=== PATIENT | male | born 1960 | race Caucasian/White ===

== ENCOUNTER 2025-08-22 08:39 | Observation (INO) ==
--- NOTE | 2025-07-14 10:17 | PAT Medication Instructions ---
Medication Instructions Date of Service July 14, 2025 Home Medications Medication Instructions Recorded pravastatin 80 mg tablet 80 mg PO QAM #90 tabs 10/06/24 finasteride 5 mg tablet 5 mg PO QAM #90 tabs 03/07/25 pravastatin 80 mg tablet 80 mg PO QAM finasteride 5 mg tablet 5 mg PO QAM fexofenadine 180 mg tablet 180 mg PO QAM losartan 50 mg tablet 50 mg PO QAM meloxicam 15 mg tablet 15 mg PO QAM semaglutide 2.5 mg/mL subcutaneous solution 2.5 mg subcut WK trazodone 100 mg tablet 100 - 150 mg PO HS STOP 7 days before surgery semaglutide 2.5 mg/mL subcutaneous solution 2.5 mg subcut WK ASK your surgeon for instructions meloxicam 15 mg tablet 15 mg PO QAM DO NOT take the morning of surgery fexofenadine 180 mg tablet 180 mg PO QAM losartan 50 mg tablet 50 mg PO QAM Take morning of surgery With a small sip of water, OTHERWISE NOTHING TO EAT OR DRINK AFTER MIDNIGHT: pravastatin 80 mg tablet 80 mg PO QAM finasteride 5 mg tablet 5 mg PO QAM Take evening before surgery trazodone 100 mg tablet 100 - 150 mg PO HS Other Notes If you have any questions please call us at [phone] or [phone] or [phone] or [phone]
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
[~2025-08-22 08:39] MED LIST: BUPIVACAINE 0.25% PF 30 ML VIAL ONE; BUPIVACAINE 0.5 % 5 MG/1 ML PF 10ML VIAL ONE; DEXAMETHASONE SOD INJ 4 MG/ML VIAL ONE
[2025-08-22] MEDS ORDERED: LIDOCAINE 2% 2 ML VIAL/AMP(20MG/ML) INFIL ONE (09:18)
[2025-08-22] MEDS ORDERED: PROPOFOL IV EMULSION 10 MG/ML 20 ML VIAL IV ONE (09:18)
[2025-08-22] MEDS ORDERED: MIDAZOLAM HCL 1 MG/ML 2ML VIAL ONE (09:19)
[2025-08-22] MEDS: LR 500ML BOLUS, THEN 15ML/HR IV SCH (09:30)
[2025-08-22] MEDS: LR 60ML/HR IV SCH (09:31)
[2025-08-22] MEDS: GABAPENTIN 300 MG CAP PO SCH (09:32)
[2025-08-22] MEDS: FAMOTIDINE 20 MG TAB PO SCH (09:32)
[2025-08-22] MEDS: ACETAMINOPHEN 500 MG TAB PO SCH ×2 (09:32→16:34)
[2025-08-22] MEDS: dexAMETHasone**PF** 10 MG/ML VIAL IV SCH (09:33)
--- NOTE | 2025-08-22 10:14 | History & Physical Bridge Note ---
Date of Service August 22, 2025 History & Physical Bridge Note I have examined the patient, reviewed the History & Physical and in the interval since the performance of the History & Physical I have noted the following changes of clinical significance: no changes noted
[2025-08-22] MEDS: TRANEXAMIC ACID 1,000 MG **IV Pre-op IV SCH (11:33)
[2025-08-22] MEDS: ORTHO JOINT ANESTHETIC ONE (12:12)
[2025-08-22] MEDS ORDERED: PHENYLEPHRINE 100MCG/ML 5ML SYR ONE (12:18)
[2025-08-22] MEDS: ROPIV 0.5% 246mg, Ketorolac 30mg, EPINEPHrine 0.5mg in NSS INFIL SCH (12:38)
--- NOTE | 2025-08-22 12:54 | Operative Report ---
PG Post Operative Report Pre & Post Diagnosis Operation Date: 08/22/25 11:00 Pre-Op Diagnosis: Left Knee Osteoarthritis Post-Op Diagnosis: Left Knee Osteoarthritis I identified the patient and participated in the time-out.: Yes Procedure Operation Date: 08/22/25 11:00 Actual Procedures p Robotic Assisted Left Total Knee Arthroplasty(Left) - Sundeep Rutherford DO Surgeon Sundeep Rutherford DO Account Support Analyst Mary Steele PA-C Estimated Blood Loss 30 Findings Consistent with Post-Op Diagnosis Specimens Left femoral and tibial bone Description of Procedure Implants used: I used a Bella Person[employer] total knee arthroplasty system with a size 8 PS standard femur, F tibia, 32 patella, and a size 10 CPS polyethylene bearing. All comp onents were press-fit into place. Matthias arrived [facility] for the above procedure. He was seen in the preoperative holding area and the operative extremity was identified and signed. he was given a preoperative antibiotic, TXA, a spinal anesthetic and an adductor nerve block. He was taken back to the operating room and laid on the table in supine position. He was given basic sedation. The operative knee was then prepped and draped in sterile fashion. A timeout was done, and the patient and the operative extremity was properly identified. A midline incision was made directly over the patella. Dissection was taken down to the extensor mechanism. A medial parapatellar arthrotomy was used. The medial retinaculum was released and the fat pad was mostly excised. The knee was flexed and the ACL, PCL, and meniscus were removed. The alignment of the knee replacement was assisted with a NanoPack robotic knee. The femoral array was pinned in the distal femur and the tibial array was pinned using a percutaneous technique in the upper shaft of the tibia. The robot was appropriately calibrated and the structure of the knee was mapped out. The components were then manipulated on the screen to account for any malalignment and to assist in gap balancing. Once I was happy with the placement of the components on the screen, a distal femoral cutting guide was brought in place. The distal femur was then resected. The femur measured to be a size 8. A 4-in-1 cutting block was then put into place by the robot and 2 peg holes were drilled. The 4-in-1 cutting block was then impacted into place and anterior, posterior, and chamfer cuts were made. The cutting block was then brought down to the tibia and pinned into place. The proximal tibia was then resected. The posterior aspect of the knee was then opened up and any additional meniscus fragments and osteophytes were removed. The tibia measured to be a size F. The tibial plate was then placed in the appropriate rotation and the tibia was drilled and punched. Trial components were then placed. The patella was then everted and 9 mm was resected off the posterior aspect of the patella. The patella measured to be a size 32. 3 peg holes were then drilled. A trial patella was placed. A size 10 CPS polyethylene insert was then trialed. The knee was brought through a full range of motion and felt to be stable. Trial components were then removed. The surrounding soft tissues were injected with 100 cc of an orthopedic pain control cocktail. All components were then press-fit into place. The final polyethylene insert was then snapped into place. The tourniquet was deflated. Hemostasis was obtained. An Irrisept lavage was then done for 3 minutes. The joint was then irrigated with normal saline solution. The medial parapatellar arthrotomy was then closed with #1 Vicryl suture. The skin was closed with 2-0 Vicryl, 3-0V lock suture, and [place] Zipline. A soft compressive dressing was placed. He was then transferred to a hospital bed and taken to the postanesthesia care unit in stable condition. He tolerated the procedure well. Mary Steele PA-C, was present for the entire procedure. He was critical for patient positioning, prepping, draping, retraction exposure, wound closure and application of sterile dressing. I attest to the content of the Intraoperative Record and any orders documented therein. Any exceptions are noted below.
[2025-08-22] MEDS ORDERED: PROMETHAZINE HCL 6.25 MG in SODIUM CHLORIDE 0.9% 50 ML IV PRN (13:08)
[2025-08-22] MEDS ORDERED: ONDANSETRON INJ 2 MG/ML 2 ML VIAL IV PRN ×2 (13:08→15:21)
[2025-08-22] MEDS ORDERED: ATROPINE SULFATE 0.1 MG/ML 10ML SYR IV PRN (13:08)
--- NOTE | 2025-08-22 13:50 | XRay Report ---
XR knee LT 1 or 2V routine CLINICAL HISTORY: Surgical Post Op COMPARISON: 02/01/2025 FINDINGS: Interval left knee prosthesis shows no hardware complication. There is expected soft tissu e gas. Stable old healed fracture at the distal femur. Stable multiple small metallic foreign bodies at and adjacent to the distal femur. IMPRESSION: Postoperative exam as described. ACT 112: Negative or not required by law. Electronically signed by: Chintan Buenrostro M.D. 08/22/2025 1:49 PM
--- NOTE | 2025-08-22 15:17 | Anesthesiology Progress Note ---
Date of Service August 22, 2025 Anesthesia Post Procedure Vital Signs Vital Signs: Temp Pulse Pulse Resp BP Pulse Ox O2 Del Method 08/22/25 15:00 71 16 115/73 98 Room Air 08/22/25 14:45 81 16 114/79 96 Room Air 08/22/25 14:35 68 18 114/76 97 Room Air 08/22/25 14:25 36.4 C L 64 20 107/75 96 Room Air 08/22/25 14:15 63 18 106/70 96 Room Air 08/22/25 14:05 64 18 102/66 95 Room Air 08/22/25 13:55 62 16 107/70 98 Oxymask 08/22/25 13:45 62 12 110/68 98 Oxymask 08/22/25 13:35 61 18 103/65 97 Oxymask 08/22/25 13:25 78 16 106/65 98 Oxymask 08/22/25 13:17 36.8 C 74 18 105/63 94 Oxymask 08/22/25 09:05 36.6 C 61 18 109/76 95 Room Air O2 Flow Rate 08/22/25 15:00 08/22/25 14:45 08/22/25 14:35 08/22/25 14:25 08/22/25 14:15 08/22/25 14:05 08/22/25 13:55 4 08/22/25 13:45 4 08/22/25 13:35 4 08/22/25 13:25 6 08/22/25 13:17 6 08/22/25 09:05 Pain Intensity Left Knee: Pain Intensity: 5 Transfer of Care Handoff Completed per policy Notes Mental Status: alert / awake / arousable Patient Amnestic to Procedure: Yes Nausea / Vomiting: adequately controlled Pain: adequately controlled Airway Patency, RR, SpO2: stable & adequate BP & HR: stable & adequate Hydration State: stable & adequate Neuraxial Anesthesia: was administered and sensory block is resolving Anesthetic Complications: no major complications apparent and Pt Satisfied with anesthetic care
[2025-08-22] MEDS ORDERED: diphenhydrAMINE Capsule 25 MG CAP PO PRN (15:21)
[2025-08-22] MEDS ORDERED: NALOXONE HCL 0.4 MG/1 ML VIAL/CARP IV PRN (15:21)
[2025-08-22] MEDS ORDERED: MAGNESIUM HYDROXIDE SUSP 30 ML UDC PO PRN (15:21)
[2025-08-22] MEDS ORDERED: METOCLOPRAMIDE HCL INJ 5 MG/ML 2 ML VIAL IV PRN (15:21)
[2025-08-22] MEDS: SODIUM CHLORIDE 0.9% 1,000 ML IV SCH (15:37)
[2025-08-22] MEDS: KETOROLAC TROMETHAMINE 15 MG/ML VIAL IV SCH (16:34)
[2025-08-22] MEDS: DOCUSATE SODIUM 100 MG CAP PO SCH (20:21)
[2025-08-22] MEDS: SENNA 8.6 MG TAB PO SCH (20:22)
[2025-08-22] MEDS: ASPIRIN 81 MG ECTAB PO SCH (20:23)
[2025-08-23 04:16] VITALS: RESP 16
[2025-08-23 07:53] VITALS: BP 126/78; PULSE 72; TEMP 98.1; O2SAT 98
--- NOTE | 2025-08-23 07:58 | Orthopedic Progress Note ---
Date of Service August 23, 2025 Assessment & Plan (1) Status post total left knee replacement not using cement: * Continue Current Treatment * Disposition: home * Daily treatment: Physical Therapy/ Occupational Therapy per protocol * Weight bearing status: WBAT * Continue to monitor for ABLA * Pain control * DVT prophylaxis, ASA * Office/hospital f/u 2 weeks for progress check and staple/suture removal * Plan for discharge today pending PT/OT clearance Subjective .Active Problems: S/p left TKA POD 1 65 y/o male s/p left TKA. Doing well overall, pain managed and improved function. Denies fever/chills, chest pain/SOB, nausea/vomiting. Otherwise no complaints. Review of Systems All systems reviewed & are unremarkable except as noted in HPI & below. Physical Exam . * General: Alert and oriented, no acute distress * Constitutional: well-developed, well-nourished. * Respiratory: Normal respiratory effort, no distress * Gastrointestinal: No tenderness to palpation, no rigidity or guarding. * Skin: No rash or lesion. * Neurologic: Grossly normal * Musculoskeletal: left knee surgical dressing CDI, not removed for exam. Otherwise no obvious deformity or overlying skin changes RLE. Diffuse TTP distal thigh and knee region. Otherwise no specific tenderness of proximal thigh, lower leg, foot/ankle. AROM knee flexion 100 degrees. AROM foot/ankle intact. Sensation intact plantar/dorsal foot. Brisk capillary refill. Results & Data Results & Data Laboratory Results . Diagnostic Findings . Knee X-Ray 08/22/25 13:20 XR knee LT 1 or 2V routine CLINICAL HISTORY: Surgical Post Op COMPARISON: 02/01/2025 FINDINGS: Interval left knee prosthesis shows no hardware complication. There is expected soft tissue gas. Stable old healed fracture at the distal femur. S table multiple small metallic foreign bodies at and adjacent to the distal femur. IMPRESSION: Postoperative exam as described. ACT 112: Negative or not required by law. Electronically signed by: Chintan Buenrostro M.D. 08/22/2025 1:49 PM PG Care Time/CCT Total # of Minutes Spent Total Time Spent with Patient: Total time spent is greater than 50% in coordination of care (as documented) at patient's floor/unit and/or counseling patient: Coding Level of Care Code 28944 Post Operative Follow-Up Diagnoses Status post total left knee replacement not using cement Z96.652
[2025-08-23] MEDS: FINASTERIDE 5 MG TAB PO SCH (09:25)
[2025-08-23] MEDS: MULTIVITAMIN TAB PO SCH (09:26)
[2025-08-23] MEDS: FEXOFENADINE HCL 180 MG TAB PO SCH (09:26)
[2025-08-23] MEDS: LOSARTAN POTASSIUM 50 MG TAB PO SCH (09:26)
[2025-08-23] MEDS: PRAVASTATIN SOD 40 MG TAB PO SCH (09:26)
== END 2025-08-23 11:20 | disposition home or self-care (01) ==
LOC: ASU 08:39 → 3E 08:39